=== PATIENT | male | born 1945 | race Caucasian/White ===

== ENCOUNTER 2024-06-10 09:06 | Outpatient (OUT) | payer MEDICARE, SELFPAY ==
[2024-06-10 09:44] LABS: Basophils Absolute Auto 0.1 10^3/uL (0.0-0.1); Basophils Percent Auto 0.7 % (0.2-2.0); Eosinophils Absolute Auto 0.4 10^3/uL (0.0-0.7); Eosinophils Percent Auto 4.4 % (0.9-7.0); Hematocrit 36.5 % (42.0-54.0); Hemoglobin 12.1 g/dL (14.0-18.0); Immature Granulocytes Abs Auto 0.02 10^3/uL (0.00-0.03); Immature Granulocytes Pct Auto 0.2 % (0.0-0.5); Lymphocytes Absolute Auto 1.9 10^3/uL (1.2-3.8); Mean Corpuscular HGB Conc 33.2 g/dL (29.9-35.2); Mean Corpuscular Volume 90.6 fL (80.0-94.0); Monocytes Absolute Auto 0.9 10^3/uL (0.3-0.8); Monocytes Percent Auto 9.8 % (1.7-12.0); Neutrophils Absolute Auto 5.6 10^3/uL (1.4-6.5); Neutrophils Percent Auto 63.9 % (43.0-75.0); Platelet Count 184 10^3/uL (150-450); Red Blood Count 4.03 10^6/uL (4.70-6.10); Red Cell Distribution Width 12.9 % (11.0-15.0); White Blood Count 8.8 10^3/uL (4.0-11.0)
[2024-06-10 09:50] LABS: Ammonia 22 umol/L (11-32)
[2024-06-10 10:38] LABS: Alanine Aminotransferase 29 U/L (16-63); Albumin Globulin Ratio 1.2; Albumin Level 3.6 g/dL (3.4-5.0); Alkaline Phosphatase 63 U/L (46-116); Anion Gap 12.3; Aspartate Amino Transferase 39 U/L (15-37); Bilirubin Total 0.5 mg/dL (0.2-1.0); Calcium 9.1 mg/dL (8.5-10.1); Carbon Dioxide 27.6 mmol/L (21.0-32.0); Chloride 106 mmol/L (98-107); Chol HDL Ratio 2.5; Cholesterol 109 mg/dL (<=200); Estimated GFR (African America >60 (>=60 mL/min/1.73m^2); Estimated GFR (Non-African Ame 56 (>=60 mL/min/1.73m^2); Free T3 2.21 pg/mL (2.18-3.98); Globulin 3.1 g/dL; Glucose 100 mg/dL (74-106); HDL Cholesterol 43 mg/dL (40-60); LDL Cholesterol Calculated 47.2 mg/dL; Potassium 4.9 mmol/L (3.5-5.1); Sodium 141 mmol/L (136-145); Thyroid Stimulating Hormone 0.935 uIU/mL (0.358-3.740); Total Protein 6.7 g/dL (6.4-8.2); Triglycerides 94 mg/dL (<=150); Uric Acid 6.6 mg/dL (3.5-7.2); VLDL CHOLESTEROL 18.8 mg/dL
[2024-06-10 11:02] LABS: Prostate Specific Antigen Scrn 2.07 ng/mL (<=4.00)
[2024-06-10 12:16] LABS: Estimated Average Glucose 120 mg/dL; Glycohemoglobin A1C 5.8 % (4.5-6.2)
== END 2024-06-10 09:07 | disposition home or self-care (01) ==
LOC: LAB 09:14
PROVIDERS: PCP Family Medicine; Visit Provider Family Medicine
DX: G47.00 Insomnia, unspecified (principal); E11.9 Type 2 diabetes mellitus without complications; R41.3 Other amnesia; F03.90 Unspecified dementia, unspecified severity, without behavioral disturbance, psychotic disturbance, mood disturbance, and anxiety; E78.5 Hyperlipidemia, unspecified; E03.9 Hypothyroidism, unspecified; Z12.5 Encounter for screening for malignant neoplasm of prostate; R53.83 Other fatigue; I10 Essential (primary) hypertension
CPT/HCPCS: 36415; 80053; 80061; 82140; 83036; 83880; 84436; 84443; 84481; 84550; 85025; G0103

== ENCOUNTER 2024-06-30 12:05 | Outpatient (OUT) | payer MEDICARE, SELFPAY ==
--- OUTSIDE RECORDS SUMMARY | 2024-06-30 12:09 | XMS_ITS | CCD ---
Author Organization [facility] Care Team Providers Care Rn Referral Name Role Phone GARRY ., DR PILLAI Attending Unavailable HAY ., DR PILLAI Admitting Unavailable HOY ., DR PIRES Primary Care Unavailable SHILOH, DR MARY ELLEN Clayton Consulting Unavailable GRECHNY ., AMMY PARKER Consulting Unavailabl e HAY ., DR PILLAI Consulting Unavailable TAMLYZachariah ., ANGEL Admitting Unavailable HOY ., DR PIRES Primary Care Unavailable TAMLYN ., ANGEL Attending Unavailable HOY ., DR PIRES Primary Care Unavailable TAMLYN ., ANGEL Attending Unavailable TAMLYN ., ANGEL Admitting Unavailable Allergies Allergy Classification Reported Allergen(s) Allergy Type Date of Onset Reaction(s) Facility (1 source) Amino Acids Drug Allergy 02-02-2016 [facility] Repository Problems Problem Classification Problem Date Documented Date Episodic/Chronic Anxiety disorders (1 source) Post-traumatic stress disorder, unspecified; Translations: [POST-TRAUMATIC STRESS DISORDER UNS] Onset: 3 Chronic Diabetes mellitus with complications (1 source) Type 2 diabetes mellitus with diabetic neuropathy, unspecified; Translations: [TYPE 2 DM W/DIABETIC NEUROPATHY UNS] Onset: 3 Chronic Disorders of lipid metabolism (1 source) Pure hypercholesterolemia, unspecified; Translations: [PURE HYPERCHOLESTEROLEMIA UNSPEC] Onset: 3 Chronic E Codes: Cut/pierceb (1 source) Contact with powered garden and outdoor hand tools and machinery, initial encounter; Translations: [CNTCT PWR GARDN HND TOOL MACH INIT] Onset: 3 Episodic Essential hypertension (1 source) Essential (primary) hypertension; Translations: [ESSENTIAL PRIMARY HYPERTENSION] Onset: 3 Chronic Immunizations and screening for infectious disease (1 source) Encounter for immunization; Translations: [ENCOUNTER FOR IMMUNIZATION] Onset: 3 Episodic Open wounds of extremities (5 sources) Unspecified open wound, right knee, initial encounter; Translations: [Laceration without foreign body, right knee, initial encounter] Onset: 3 Episodic Other aftercare (1 source) assisted (current) use of aspirin; Translations: [WELDING ESTIMATOR CURRENT USE OF ASPIRIN] Onset: 3 Episodic Other aftercare (1 source) keno terminal operator (current) use of oral hypoglycemic drugs; Translations: [WELDING ESTIMATOR USE ORAL HYPOGLYCEMIC DX] Onset: 3 Episodic Other aftercare (1 source) Other senior living (current) drug therapy; Translations: [OTH WELDING ESTIMATOR CURRENT DRUG THERAPY] Onset: 3 Episodic Other injuries and conditions due to external causes (3 sources) Unspecified injury of right lower leg, initial encounter; Translations: [UNS INJURY RT LOWER LEG INITIAL ENC] Onset: 3 Episodic Unclassified (1 source) PERSONAL HISTORY OF COVID-19; Translations: [PERSONAL HISTORY OF COVID-19] Onset: 3 Results Test Name Value Interpretation Reference Range Facil ity Glucose Poct Glucometerson 0 05-25-2020 Glucose [Mass/Vol] 138 mg/dL Normal [facility] Comment on above: Result Comment: [facility][note 3] Glucose Reference Range is dependent on time and content of last meal. Glucose of more than 200 mg/dL in a nonstressed, ambulatory subject supports the diagnosis of Diabetes Mellitus. PERFORMED BY: [facility] [address] [place] [address] PATHOLOGIST GROUND INSTRUCTOR BASIC KHLOE ROJAS M.D. Performed By: #### G CONNER #### Point of Care testing , [facility] 05-25-2020 L - -------- Specimen: [id number] Received: 05/25/20 Status: DAVIDA Pro Num: [id number] Spec Type: Surgical Subm Dr: Mary Ellen Ron Jr, DO Tissues: A Esophagus Biopsy (DISTAL ESOPHAGUS BX) Procedures: HE Stain/2, Gross/Micro L4 -------- Patient Age/Sex Location Account Attending Physician -------- Rachel Mccarty/[facility] [id number] Mary Ellen Ron Jr, DO -------- SPEC NUM: [id number] RECD: 05/25/20 STATUS: DAVIDA INOCENCIA NUM: [id number] ASTON: 05/25/20- [facility] DR: Mary Ellen Ron Jr, DO ENTERED: 05/25/20 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 Entirely submitted in one cassette labeled A1. (SM/JS) Microscopic Description Two glass slides with H E stained material have been examined. The microscopic findings support the above pathologic diagnosis. [id number] -------- -------- Specimen: [id number] Received: 05/25/20 Status: GAILMarquis Inocencia Num: [id number] Spec Type: Surgical Subm Dr: Mary Ellen Ron Jr, DO Tissues: A Esophagus Biopsy (DISTAL ESOPHAGUS BX) Procedures: HE Stain/2, Gross/Micro L4 -------- Patient: Rachel Mccarty [id number] (Continued) -------- Signed (signature on file) Khloe Rojas MD 05/26/20 1730 Normal [facility] SARS-CoV-2 (COVID-19) RNA PB+probe Ql (Unsp spec) Negative Normal Negative [facility] Comment on above: Order Comment: Healt hcare Worker?: N Result Comment: Refe rence: Negative Testing for SARS-CoV-2 by RT-PCR This test was developed and its performance characteristics determined by [employer]) and validated at the [facility]. This test has not been FDA cleared or approved. This test has been authorized by FDA under an Emergency Use Authorization (EUA). This test has been validated in accordance with the FDA's Guidance Document (Policy for Diagnostics Testing in Laboratories Certified to Perform High Complexity Testing under CLIA prior to Emergency Use Authorization for Coronavirus Disease-2019 during the Public Health Emergency) issued on May 13, 2019. This test is only authorized for the duration of time the declaration that circumstances exist justifying the authorization of the emergency use of in vitro diagnostic tests for detection of SARS-CoV-2 virus and/or diagnosis of COVID-19 infection under section 564(b)(1) of the Act, 21 U.S.C. 360bbb-3(b)(1), unless the authorization is terminated or revoked sooner. PERFORMED BY: [place] [address] PATHOLOGIST GROUND INSTRUCTOR BASIC KHLOE ROJAS M.D. Performed By: #### C OVID-19 [facility] #### [address] Encounters Encounter Date Encounter Type Care Provider Facility Start: 05-23-2022 End: 05-24-2022 ambulatory ANGEL GILLETTE . Facility:[facility] Start: 05-09-2022 End: 05-10-[address] LEXIS HAJI . Facility:[facility] Start: 04-17-2022 End: 04-17-[address] FREYA CASTAÑEDA . Facility:[facility] Payers Date Payer Category Payer Unknown [id number] 1957 Medicare [id number] 1957 Unknown [id number] 1945 Unknown [id number] 1945 Unknown [id number] 1945 Unknown [id number] Clinical Note 04-17-2022 Note Date & Type Note Facility 04-17-2022 Note PROCEDURE: XR KNEE R T 4V or > COMPARISON: None. HISTORY: Laceration of knee FINDINGS: BONES:No acute fracture or dislocation. Degenerative changes with marginal osteophyte SOFT TISSUES:Soft tissue injury medial lower leg EFFUSION:Moderate joint effusion OTHER: Negative. IMPRESSION: Soft tissue injury and joint effusion Electronically authenticated by: MARY ELLEN CHUA Date: 2022-04-17 14:21 [facility] Summary Purpose Family History No Family History Records FoundNo Family History Records Found Advance Directives No Advanced Directives Records FoundNo Advanced Directives Records Found Additional Source Comments (unrecognized sect ion and content) No Status Records FoundNo Status Records Found INFORMATION SOURCE (unrecogn ized section and content) DATE CREATED AUTHOR 04/03/2021 [facility] DATE CREATED AUTHOR AUTHOR'S STEVIE MONTANO 06/27/2022 [facility] FOR RECORDS PERTAINING TO PATIENTS WHO ARE OR HAVE BEEN ENROLLED IN A CHEMICAL DEPENDENCY/SUBSTANCEABUSE PROGRAM, SOME INFORMATION MAY BE OMITTED. This clinical summary was aggregated from multiple sources. Caution should be exercised in using it in the provision of clinical care. This summary normalizes information from multiple sources, and as a consequence, information in this document may materially change the coding, format and clinical context of patient data. In addition, data may be omitted in some cases. CLINICAL DECISIONS SHOULD BE BASED ON THE PRIMARY CLINICAL RECORDS. [employer] [facility]. provides no warranty or guarantee of the accuracy or completeness of information in this document.
--- NOTE | 2024-06-30 12:14 | MR_ITS ---
The [address] [address] Patient Name: RACHEL FOX MRN: [id number] date: 1945 Sex: M Assigned Patient Location: [facility] Current Patient Location: [facility] Accession/Order Number: [id number] Exam Date: 06/30/2024 13:55 Report Date: 06/30/2024 13:58 At the request of: LEXIS HAJI MD Procedure: MR head/brain wo con MR head/brain wo con 06/30/2024 1:27 PM SIGN AND SYMPTOMS: Loss of short-term memory PROTOCOL: Multiplanar multisequence MR images of the brain were obtained without IV contrast COMPARISON: None. FINDINGS: Extra axial spaces: There is age-related cortical atrophy. Hemorrhage: None. Ventricular system: Within normal limits. Basal cisterns: Within normal limits and not effaced. Cerebral parenchyma: There is periventricular and subcortical white matter T2 and T2 FLAIR hyperintense signal. Midline shift: None.. Cerebellum: Within normal limits. Brainstem: Within normal limits. OTHER: Calvarium: Normal marrow signal. Vascular system: Satisfactory flow voids within the anterior and posterior circulation. Visualized Paranasal sinuses: Mucosal thickening is noted in the ethmoid air cells and left maxillary sinus. Visualized Orbits: Within normal limits. Visualized upper cervical spine: Within normal limits. Sella and skull base: Within normal limits. MR/MR head/brain wo con IMPRESSION: No acute intrarenal pathology. Chronic age-related neurodegenerative changes are noted as above. Impression dictated by: Liban Staley M.D. 06/30/2024 1:58 PM [facility] Electron[facility] authenticated by: [id number] Y Date: 06/30/2024 13:58
--- NOTE | 2024-06-30 12:20 | XR_ITS ---
[address] [address] Patient Name: RACHEL FOX MRN: [id number] date: 1945 Sex: M Assigned Patient Location: RAD Current Patient Location: [facility] Accession/Order Number: [id number] Exam Date: 06/30/2024 12:22 Report Date: 06/30/2024 12:23 At the request of: LEXIS HAJI MD Procedure: XR foreign body eye JABARI XR foreign body eye JABARI 06/30/2024 12:20 PM SIGNS AND SYMPTOMS: ^Foreign Body Screen PROTOCOL: Frontal and lateral radiographs of the orbits COMPARISON: None FINDINGS: The bony ring of the orbits are intact. The visualized paranasal sinuses are well aerated. No abnormal radiopaque foreign body. XR/XR foreign body eye JABARI IMPRESSION: No abnormal radiopaque foreign body. Impression dictated by: Liban Staley M.D. 06/30/2024 12:23 PM Dictation Location: [place] [address] Electronically authenticated by: [id number] Y Date: 06/30/2024 12:23
== END 2024-06-30 12:06 | disposition home or self-care (01) ==
LOC: RAD 12:05
PROVIDERS: PCP Family Medicine; Visit Provider Family Medicine
DX: Z01.818 Encounter for other preprocedural examination (principal); R41.3 Other amnesia
CPT/HCPCS: 70030; 70551